=== PATIENT | male | born 1995 | race Caucasian/White ===

== ENCOUNTER 2024-12-28 19:35 | Emergency (ER) | payer BC, SELFPAY ==
[2024-12-28] MEDS ORDERED: Lidocaine 1% PF 5 ML VIAL ONE ×2 (19:47→19:56)
== END 2024-12-28 20:16 | disposition home or self-care (01) ==
LOC: BURERS 19:35
DX: S61.211A Laceration without foreign body of left index finger without damage to nail, initial encounter (principal); F17.290 Nicotine dependence, other tobacco product, uncomplicated; W26.0XXA Contact with knife, initial encounter
CPT/HCPCS: 12001; 99282